=== PATIENT | female | born 1985 | race Caucasian/White ===

== ENCOUNTER 2018-09-28 08:33 | Emergency (ER) | payer BC, OTHER ==
[~2018-09-28] VITALS: Ht 154.9 cm; Wt 58.1 kg
[~2018-09-28 08:33] MED LIST: IBUP-1222 PO; OXYC-302 PO; PNV1TABL4 PO; SENN1TAB67 PO; SIME80TA16 PO
--- NOTE | 2018-09-28 08:40 | NUR ---
UA CUP GIVEN
[2018-09-28 09:20] LABS: BASOPHILS # (AUTO) 0.04 x10^3/uL (0-0.1); BASOPHILS % (AUTO) 1 % (0-1); EOSINOPHILS # (AUTO) 0.04 x10^3/uL (0-0.4); EOSINOPHILS % (AUTO) 1 % (1-7); LYMPHOCYTES # (AUTO) 1.67 x10^3/uL (1-3.4); LYMPHOCYTES % (AUTO) 27 % (22-44); MD NO; MEAN CORPUSCULAR HGB CONC 33.2 g/dL (32.4-35.8); MEAN CORPUSCULAR VOLUME 90.3 fL (80-100); MEAN PLATELET VOLUME 7.9 fL (7.4-10.4); MONOCYTES # (AUTO) 0.39 x10^3/uL (0.2-0.8); MONOCYTES % (AUTO) 6 % (2-9); NEUTROPHILS # (AUTO) 4.11 x10^3/uL (1.8-6.8); NEUTROPHILS % (AUTO) 66 % (42-75); PLATELET COUNT 187 x10^3/uL (130-400); RED BLOOD COUNT 4.26 x10^6/uL (3.82-5.3); RED CELL DISTRIBUTION WIDTH 14.1 % (9.6-15.2)
[2018-09-28 09:28] LABS: ANION GAP 9 mmol/L (5-15); CALCIUM 9.4 mg/dL (8.5-10.1); CHLORIDE 107 mmol/L (98-107)
[2018-09-28 09:29] LABS: CREATININE 0.73 mg/dL (0.55-1.02)
[2018-09-28 09:30] LABS: HCG UR SG 1.028 (1.003-1.030)
[2018-09-28 09:53] LABS: MICROSCOPIC INDICATED
[2018-09-28 09:54] LABS: CULTURE INDICATED? YES
--- NOTE | 2018-09-28 10:01 | NUR ---
pt upright on gurney awake & comfortable, responds approp to staff, NAD, family at BS, call light within reach.
--- NOTE | 2018-09-28 10:45 | NUR ---
pt to CT
--- NOTE | 2018-09-28 11:05 | NUR ---
pt remains upright on gurney awake & comfortable, responds approp to staff, NAD, family at BS, call light within reach.
--- NOTE | 2018-09-28 12:01 | NUR ---
pt upright on gurney awake & comfortable, responds approp to staff, NAD, comfort measures provided, at BS, call light within reach.
[2018-09-28 12:04] LABS: MICROSCOPIC INDICATED
[2018-09-28 12:22] LABS: CULTURE INDICATED? NO
[2018-09-28 12:57] VITALS: BP 122/76
== END 2018-09-28 13:00 | disposition home or self-care (01) ==
LOC: ED 10:13
DX: N13.2 Hydronephrosis with renal and ureteral calculous obstruction (principal); R10.32 Left lower quadrant pain
CPT/HCPCS: 36415; 74176; 80048; 81001; 81025; 82040; 85025; 87086; 87147; 99284